=== PATIENT | male | born 1940 | race Caucasian/White ===

== ENCOUNTER 2016-10-04 18:43 | Emergency (ER) | payer OTHER, BC ==
[~2016-10-04] VITALS: Ht 177.8 cm; Wt 81.7 kg
[~2016-10-04 18:43] MED LIST: ACCUPRIL40 MG PO; ALPRAZOLAM 0.0.25 MG PO; ASPIRIN325 PO; CEFDINIR300 MG PO; CIPRO250 M1 PO; FLOMAX PO; LESCOL XL80 MG PO; NEXIUM40 MG PO; PROSCAR 5MG TABL5 M1 PO
[2016-10-04 21:01] VITALS: BP 109/71
[2016-10-04] MEDS ORDERED: ULTRAM 50MG TAB50 MG PO (21:28)
== END 2016-10-04 21:20 | disposition home or self-care (01) ==
LOC: ER 18:43
DX: R04.0 Epistaxis (principal); I10 Essential (primary) hypertension; K21.9 Gastro-esophageal reflux disease without esophagitis; Z95.5 Presence of coronary angioplasty implant and graft; Z96.652 Presence of left artificial knee joint; Z90.49 Acquired absence of other specified parts of digestive tract; Z88.6 Allergy status to analgesic agent

== ENCOUNTER 2019-02-19 11:44 | Emergency (ER) | payer OTHER, BC ==
[~2019-02-19] VITALS: Ht 175.3 cm; Wt 81.2 kg
[~2019-02-19 11:44] MED LIST changes: +ULTRAM 50MG TAB50 MG PO
[2019-02-19] MEDS ORDERED: OMEPRAZOLE40 MG PO (11:49)
[2019-02-19] MEDS ORDERED: CRESTOR20 MG PO (11:49)
[2019-02-19] MEDS ORDERED: AVAPRO 150 MG150 MG PO (11:49)
[2019-02-19] MEDS ORDERED: PROBIOTIC1 EAC1 PO (11:50)
[2019-02-19] MEDS ORDERED: MAGOX 400400 MG PO (11:51)
[2019-02-19] MEDS ORDERED: EYE DROP15 ML OPHTHALMIC (11:52)
[2019-02-19 12:10] LABS: HEMATOCRIT 38.1 % (42.0-52.0); HEMOGLOBIN 12.8 gm/dL (14.0-18.0); MCHC 33.6 g/dL (28.0-37.0); MCV 92.3 fL (80.0-100.0); RBC 4.13 mil/uL (4.50-6.00); WBC 4.1 thou/uL (4.0-11.0)
[2019-02-19 12:12] LABS: CALCIUM 10.9 mg/dL (8.5-10.1); CREATININE 1.8 mg/dL (0.7-1.3); POTASSIUM 4.1 mmol/L (3.5-5.1)
[2019-02-19] MEDS ORDERED: TRAMADOL 50 MG50 MG PO (13:56)
[2019-02-19 14:29] VITALS: BP 128/87
== END 2019-02-19 14:19 | disposition home or self-care (01) ==
LOC: ER 11:44
PROVIDERS: Physician Assistant
DX: S80.212A Abrasion, left knee, initial encounter (principal); S60.311A Abrasion of right thumb, initial encounter; M25.551 Pain in right hip; I10 Essential (primary) hypertension; K21.9 Gastro-esophageal reflux disease without esophagitis; Z95.5 Presence of coronary angioplasty implant and graft; Z96.652 Presence of left artificial knee joint; Z90.49 Acquired absence of other specified parts of digestive tract; Z88.6 Allergy status to analgesic agent; Z87.891 Personal history of nicotine dependence; W01.0XXA Fall on same level from slipping, tripping and stumbling without subsequent striking against object, initial encounter; Y93.01 Activity, walking, marching and hiking; Y92.89 Other specified places as the place of occurrence of the external cause; Y99.8 Other external cause status

== ENCOUNTER → 2019-04-06 | Outpatient (CLI) | payer OTHER, BC ==
[~2019-04-06] MED LIST changes: +ASPIR 8181 MG PO; -ASPIRIN325 PO; +AVAPRO 150 MG150 MG PO; +CRESTOR20 MG PO; +EYE DROP15 ML OPHTHALMIC; +MAGOX 400400 MG PO; +OMEPRAZOLE40 MG PO; +PROBIOTIC1 EAC1 PO; +TRAMADOL 50 MG50 MG PO
== END ==
LOC: RAD 09:34
DX: M48.54XA Collapsed vertebra, not elsewhere classified, thoracic region, initial encounter for fracture (principal); M47.817 Spondylosis without myelopathy or radiculopathy, lumbosacral region; M41.87 Other forms of scoliosis, lumbosacral region; W19.XXXA Unspecified fall, initial encounter; Y93.89 Activity, other specified; Y92.89 Other specified places as the place of occurrence of the external cause; Y99.8 Other external cause status

== ENCOUNTER → 2019-04-17 | Outpatient (CLI) | payer OTHER, BC ==
[~2019-04-17] VITALS: Ht 175.3 cm; Wt 86.6 kg
[2019-04-17 13:36] VITALS: BP 152/100
--- NOTE | 2019-04-17 13:46 | NUR ---
Pain Clinic Assessment: 1. History of Osteoarthritis: spine History of Rheumatoid Arthritis: Not Applicable 2. Height: 5 ft. 9 in. 175.3 cm. Weight: 191.0 lb. oz. 86.637 kg. Patient's BMI: 28.2 3. Vital Signs: BP: 152/100 Pulse: 99 Resp: 16 Temp: 02 Sat: ECG Mon: 4. Pain Intensity: 7 5. Fall Risk: Dizziness: N Needs help standing or walking: N Fallen in the last 3 months: Y Fall risk comments: 6. Patient on Blood Thinner: None 7. History of Hypertension: Y 8. Opioid Therapy greater than 6 weeks: N Opiate Contract Signed: 9. Risk Assessment Tool Provided: low-0 10. Functional Assessment Tool: 43/ 11. Recreational Drug Use: Never Drug Type: Tobacco Use: Former Smoker Tobacco Type: Amount or Packs/day: How Many Years: Alcohol Use: No Frequency: Quant:
--- NOTE | 2019-04-24 12:56 | HPC ---
[address] [place] [address] PAIN MANAGEMENT CONSULTATION Name: CHANELDIMPLE Room #: [id number] Admission: 04/17/19 Attend Phys: Jaciel Maharaj DO Discharge: Date of : 42 Report #: [id number] THIS REPORT FOR: //name// CC: Jaciel Beach DATE OF SERVICE: 04/17/2019 REFERRING NURSE PRACTITIONER: DAILY Mendez CHIEF COMPLAINT: Right low back pain. HISTORY OF PRESENT ILLNESS: As you know, the patient is a pleasant 78-year-old male who reports longstanding history of low back pain that has been present for years with an exacerbation of symptoms on 02/13/2019. The patient denies any specific injury or trauma that may have led to symptom occurrence. He is able to localize pain over the right lower back. He indicates he has trialed conservative treatment options including medications [id number] as well as rest, relaxation and some stretching exercises at home. He has not undergone any formalized physical therapy. It was noted that the patient had been seen in the Emergency Department where he was advised he had no concerning findings though x-ray imaging did show compression fracture at T11 on the superior endplate though the patient's symptoms did not appear to correlate to those findings. It was determined that this may be an old fracture though on x-ray imaging this cannot be determined. Due to lack of improvement with conservative treatment, the patient was subsequently referred to our clinic to discuss options for treatment of low back pain on the right side. The patient indicates pain is continuous, describes the pain as aching, places current pain score at 7/10, daily average at 8/10, worst pain has been at 10/10. The patient states that sitting or walking any distances or standing for long periods of time exacerbates symptoms. Movement tends to improve pain as does slight forward flexion of lumbar spine. He has been referred to our service to discuss treatment options for chronic back pain. PAST MEDICAL HISTORY: 1. Benign prostatic hypertrophy. 2. Coronary artery disease. 3. Hypercholesterolemia. 4. Hypertension. 5. Renal insufficiency. 6. Chronic back pain. PAST SURGICAL HISTORY: 1. Appendectomy. [address] [place] [address] PAIN MANAGEMENT CONSULTATION Name: DIMPLE BUCHANAN Room #: REG CL Humberto.#: [id number] Admission: 04/17/19 Attend Phys: Jaciel Maharaj DO Discharge: Date of : 42 Report #: [id number] 2. Cataract extraction. 3. Hemorrhoid surgery. 4. Laparoscopic cholecystectomy. 5. Prostate biopsy. 6. Total knee arthroplasty on the left. 7. Revision of total knee arthroplasty on the left. SOCIAL HISTORY: The patient denies tobacco, alcohol, IV or illicit drug use. He is retired, retired in 2011, not receiving workmen's compensation nor is he trying to obtain disability benefits. He is not in litigation in regards to pain accompanied by his daughter who is present in room today. REVIEW OF SYSTEMS: Positive for decrease in appetite, fever, night sweats, wearing corrective eyewear, hearing loss with tinnitus, chronic sinus problems with rhinitis, loss of appetite, frequent urination, nocturia, chronic low back pain. All other review of systems negative per 12-point review of systems other than those listed in history of present illness. Pain impact score 35/70 indicating moderate interference of daily activities secondary to pain. ALLERGIES: No known drug allergies. CURRENT MEDICATIONS: Aspirin 81 mg per day, lovastatin 20 mg once a day, irbesartan 150 mg once a day, lactobacillus 1 tab per day, magnesium oxide 400 mg per day, tetrahydrozoline 1 drop per day. IMAGING: X-ray of the lumbar spine obtained 04/06/2019 shows a mild age indeterminate superior endplate compression fracture at T11. Recommend MRI followup. There is multilevel lumbar spondylosis with severe disk desiccation at L3-4 through L5-S1, mild right convexity of the lumbar spine. There are no definitive imaging studies such as CT or MRI. PQRS: The patient has arthritic changes of the lumbar spine, bilateral knees, status post left total knee arthroplasty. He has no diagnosis of rheumatoid arthritis. He is placing pain intensity at 7/10. He is not a fall risk, but has had a fall in last 3 months, apparently, trip and fall injury on object. He does not use any type of assistive devices for ambulation. The patient is not on blood thinners. He is treated for hypertension. He is on chronic opioids, has a low opiate addiction potential. Pain impact score 35/70, moderate interference of daily activities secondary to pain. PHYSICAL EXAMINATION: VITAL SIGNS: Blood pressure 152/100, pulse is 99, respiratory rate 16 and unlabored. The patient is 97% on room air. Height 5 feet 9 inches tall, weight 191 pounds, BMI calculated 28.2. [address] [place] [address] PAIN MANAGEMENT CONSULTATION Name: DIMPLE BUCHANAN Room #: REG RENNY Schumacher#: [id number] Admission: 04/17/19 Attend Phys: Jaciel Maharaj DO Discharge: Date of : 42 Report #: [id number] GENERAL: Well-developed, well-nourished, well-hydrated 78-year-old male appearing stated age, pain is rated around 7/10. HEENT: Normocephalic, atraumatic. Pupils equal, round, reactive to light. Extraocular muscles are intact. Sclerae nonicteric without injection. NEUROLOGIC: Cranial nerves 2-12 grossly intact. Speech fluent. The patient deemed a good historian. LUNGS: Clear, no wheeze, rhonchi or rales. CARDIOVASCULAR: Regular. No appreciable gallop, no rub. ABDOMEN: Soft, nontender, nondistended. EXTREMITIES: Show no clubbing, no cyanosis, and no edema. MUSCULOSKELETAL: The patient has palpatory tenderness over the right paraspinal muscles of the lumbar spine. No spinous process tenderness. Lumbar provocation testing including extension, rotation, lateral flexion all intensify axial back pain directly over the right L4-5 and L5-S1 facet with most problematic area of the L5-S1 level. Seated straight leg raising negative. Supine straight leg raising negative. Jami's test is negative. Modified Gaenslen's test is positive for the axial low back pain on the right side, negative left. Gait is slightly antalgic favoring right lower extremity over left. Stance is slightly forward flexed lumbar spine with minimal loss of lordotic curvature. There is palpatory tenderness over the facet joint on the right, negative left at the L5-S1 level. Lumbar provocation testing including extension, rotation and lateral flexion to the right causes intensification of pain, negative left. ASSESSMENT: 1. Lumbosacral spondylosis without current radiculopathy. 2. Facet arthropathy of the lumbar spine. 3. Lumbar degeneration. 4. Chronic intractable pain. PLAN: 1. Based on today's physical exam and history the patient has provided, the description the patient uses in regards to pain, likely source of the patient's pain is the facet joints of the lumbar spine, specifically the L5-S1 on the right. The patient is able to localize pain directly over this area. We do have x-ray imaging, which shows arthritic changes throughout the lumbar region, which would correlate with the patient's current pain. He does not have any radicular component to his symptoms. There is no radiation of symptoms into the leg or down in a typical dermatomal fashion. The patient and I discussed treatment options for facet arthropathy pain, though addressing the very specific point of tenderness at the L5-S1 level on the right. Following was discussed with the patient today. We discussed today physical therapy, stretching exercise, core strengthening as a treatment option. We discussed medication management utilizing anti-inflammatory medication and potential topical agents to apply directly to the area. We discussed intra-articular facet injections as well as medial branch nerve blocks and radiofrequency lesioning to address this one specific area. We also discussed surgical options [address] [address] PAIN MANAGEMENT CONSULTATION Name: DIMPLE BUCHANAN Room #: REG CLSameer Schumacher#: [id number] Admission: 04/17/19 Attend Phys: Jaciel Maharaj DO Discharge: Date of : 42 Report #: [id number] with the patient. After reviewing risks and benefits of all proposed treatment options, the patient chose to move forward with an intraarticular facet injection. 2. The patient has been advised risks and benefits of an intra-articular facet injection to be provided under fluoroscopic guidance. These risks include but are not necessarily limited to bleeding, bruising, infection, worsening pain, no relief of pain, also risk of temporary or permanent muscle weakness, temporary or permanent nerve damage, possible paralysis, joint destruction and . The patient states understood and wished to proceed. 3. No medication changes made at today's visit. The patient will continue current medical therapy as previously prescribed. 4. We will see the patient back in followup visit in approximately 30 days. At that time, review the efficacy of today's intraarticular facet injection and determine if next in the series might be necessary or moving forward with medial branch blocks and possible radiofrequency lesioning if deemed necessary. 5. We wish to thank nurse practitioner, Nkechi Mcgregor for the opportunity to see this patient in consultation. We will keep you apprised of his response to treatment as we address the facet arthropathy pain noted on physical exam today and any other treatment options deemed necessary to treat his symptoms. Again, we wish to thank you for the opportunity to see this patient in consultation. PROCEDURE NOTE DESCRIPTION OF PROCEDURE: Right L5-S1 intraarticular facet injection under fluoroscopic guidance. This is the first procedure of the first series that the patient is undergoing. After obtaining written consent, the patient was taken back to the fluoroscopy suite and placed in a prone position with a pillow under the abdomen to decrease the lumbar lordosis and to facilitate needle entry into the facet joints. The skin overlying the lumbosacral area was prepped and draped in an aseptic fashion. AP and lateral fluoroscopic imaging was obtained. Optimal position of the fluoroscope occurred when the joint line was first visualized. The facet joints were identified radiographically directed adjacent to the superior articular process of the caudad vertebrae. The skin overlying the target site(s) of injection was anesthetized using 3 mL of 1% lidocaine. A 22 gauge 3.5 inch spinal needle with a bent tip was advanced towards the L5-S1 facet joint(s) on the right side under fluoroscopic guidance. The firm posterior capsule had its characteristic feel and the needle was advanced a few additional millimeters beyond the joint capsule into the joint space, but not into the articular cartilage. After the joint space was entered and aspiration was negative for heme or CSF, 0.2 mL of Omnipaque was injected demonstrating a characteristic facet arthrogram. After negative aspiration for heme or CSF, 1.5 mL of solution containing 1 mL, 40 mg per mL, 40 mg total triamcinolone along [address] [place] [address] PAIN MANAGEMENT CONSULTATION Name: DIMPLE BUCHANAN Room #: REG Sameer Schumacher#: [id number] Admission: 04/17/19 Attend Phys: Jaciel Maharaj DO Discharge: Date of : 42 Report #: [id number] with 0.5 mL of bupivacaine 0.5% was slowly injected at each of one facet(s). The needle(s) was then removed. There were no apparent complications. The patient tolerated the procedure well and was carefully escorted to the recovery room in stable condition. The VAS was 7 before the procedure and 0 minutes after the procedure. After meeting discharge criteria, the patient was discharged home. <ELECTRONICALLY SIGNED> By: Jaciel Maharaj DO 04/24/19 1256 [id number] [id number] Jaciel Maharaj DO /nt
== END | disposition home or self-care (01) ==
LOC: PAIN 07:00
DX: M54.5 Low back pain (principal); M47.817 Spondylosis without myelopathy or radiculopathy, lumbosacral region; M47.816 Spondylosis without myelopathy or radiculopathy, lumbar region; M51.36 Other intervertebral disc degeneration, lumbar region; G89.29 Other chronic pain; I10 Essential (primary) hypertension; E78.00 Pure hypercholesterolemia, unspecified; I25.10 Atherosclerotic heart disease of native coronary artery without angina pectoris; K21.9 Gastro-esophageal reflux disease without esophagitis; N40.0 Benign prostatic hyperplasia without lower urinary tract symptoms; N28.9 Disorder of kidney and ureter, unspecified; Z98.890 Other specified postprocedural states; Z79.899 Other long term (current) drug therapy; Z90.49 Acquired absence of other specified parts of digestive tract; Z98.49 Cataract extraction status, unspecified eye; Z79.82 Long term (current) use of aspirin; Z96.653 Presence of artificial knee joint, bilateral; Z88.8 Allergy status to other drugs, medicaments and biological substances

== ENCOUNTER → 2019-05-22 | Outpatient (CLI) | payer OTHER, BC ==
[~2019-05-22] VITALS: Ht 175.3 cm; Wt 81.7 kg
--- NOTE | ~2019-05-22 | HPC ---
[facility] [address] [place] [address] PAIN MANAGEMENT CONSULTATION Name: CHANELDIMPLE Room #: REG RENNY Humberto.#: [id number] Admission: 05/22/19 Attend Phys: Jaciel Maharaj DO Discharge: Date of : 42 Report #: [id number] THIS REPORT FOR: //name// CC: Jaciel Beach MD DATE OF SERVICE: 05/22/2019 CHIEF COMPLAINT: Right low back pain. HISTORY OF PRESENT ILLNESS: As you know, the patient is a very pleasant 78-year-old male who returns today in followup visit with continued right low back pain. He states the SI joint injection provided at last visit did not provide much in the way of benefit. He continues to point to an area at approximately the tip of the T12 rib that is the source of his current pain. Deep palpation over the area causes intensification of pain as does deep breathing and mobility. He returns today in followup visit having undergone new imaging studies requested by his PCP. 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 This unfortunately does not correlate with the patient's current symptoms. He returns to discuss options for treatment. Today, the patient is placing his pain at a 7-8/10. This is with the use of Advil. He denies injury or trauma to the area. ALLERGIES: NO KNOWN DRUG ALLERGIES. CURRENT MEDICATIONS: Aspirin, lovastatin, irbesartan, lactobacillus, and magnesium oxide. SOCIAL HISTORY: The patient denies tobacco, alcohol, IV or illicit drug use. He retired in 2011. He is accompanied by a family member present in room today. IMAGING: No new imaging available. PQRS: The patient has known arthritic changes of the lumbar spine, bilateral knees, status post left total knee arthroplasty. He does not have a diagnosis of rheumatoid arthritis. He is not a fall risk, has not had a fall in last 3 months. He is placing current pain score at 8/10 at its worse. He is not on blood thinners. He is treated for hypertension. He is not on chronic opioids, has a low opiate addiction potential and places pain impact score 43/70, moderate to severe interference of daily activities secondary to pain IMAGING: MRI lumbar spine obtained 05/03/2019 shows mild arthritic changes at [address] [address] PAIN MANAGEMENT CONSULTATION Name: DIMPLE BUCHANAN Room #: REG CLSameer Schumacher#: [id number] Admission: 05/22/19 Attend Phys: Jaciel Maharaj DO Discharge: Date of : 42 Report #: [id number] the L1-L2, L2-L3 level. There is a mild compression of thecal sac at the L1-L2 level and the L2-L3 level. At L3-L4, there is mild disk bulge, mild ligamentum flavum hypertrophy. No significant central canal neural foraminal stenosis. At L4-L5, there is a disk bulge, facet arthropathy only [id number] right and minimal left neural foraminal narrowing. L5-S1 endplate spurring minimal facet hypertrophy. No central canal neural foraminal compromise. PHYSICAL EXAMINATION: VITAL SIGNS: Blood pressure 125/91, pulse of 108, respiratory rate 16, and unlabored. The patient is 100% on room air. Height 5 feet 9 inches tall and weight 180.2 pounds, BMI calculated 26.6. GENERAL: Well-developed, well-nourished, well-hydrated 78-year-old male, appearing stated age, pain is rated today at 8/10. HEENT: Normocephalic, atraumatic. Pupils equal, round, reactive to light. Extraocular muscles are intact. EXTREMITIES: Show no clubbing, no cyanosis, and no edema. MUSCULOSKELETAL: The patient has tenderness to palpation directly over what appears to be the tip of the 12th rib on the right. There is no pain over the ileum nor is there a significant amount of sacroiliac pain generated today. The patient is able to localize the pain with a single finger directly over the tip of this 12th rib. He and I discussed the treatment options for this area and recommend a trigger point injection to address this pain directly. 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 There is a possibility that he is having some pseudoarticulation of the 12th rib upon the ileum, which is not unheard of in individuals have lost significant height due to disk changes and the patient indicates over 1-1/2 inch height loss over his lifetime. Difficult to determine if this is an articulation issue as I am unable to elicit that in physical examination. We discussed the trigger point injection today. He is amenable to undergo the procedure. We discussed the risks and benefits of a trigger point injection. These risks include, but are not necessarily limited to bleeding, bruising, infection, worsening of pain, no relief of pain, also risk of temporary or permanent muscle weakness, possible pneumothorax, and . The patient states he understood and wished to proceed. 1. No medication changes made at today's visit. The patient will keep us apprised of his effects with the trigger point injection and we will determine if repeating the injection would be warranted in the future. 2. The patient and I did discuss a return to see his PCP to discuss other options for treatment. We will continue to try to treat this issue, but further evaluation may be necessary. We will defer to the primary for that evaluation. PROCEDURE NOTE [address] [address] PAIN MANAGEMENT CONSULTATION Name: DIMPLE BUCHANAN Room #: REG CLSameer Schumacher#: [id number] Admission: 05/22/19 Attend Phys: Jaciel Maharaj DO Discharge: Date of : 42 Report #: [id number] DESCRIPTION OF PROCEDURE: Trigger point injection. After obtaining written consent, the patient was placed in a prone position. By palpating using a single finger, one trigger point was identified that reproduced the patient's typical radiating pain pattern. Trigger point was located over the tip of the 12th rib on the right. It appeared to be affecting the overlying musculature. The target site of injection was cleansed with aseptic technique using chlorhexidine. A 27-gauge 1-1/4-inch needle was then advanced towards the trigger points until the patient's typical pain was reproduced. After negative aspiration for heme, 5 mL of a solution containing 1 mL 40 mg per mL, 40 mg total triamcinolone along with 4 mL bupivacaine 0.5% was injected slowly. Needle was retracted approximately half way, flushed with 1 mL of lidocaine 1% and removed. Sterile bandage placed over injection site. There were no new motor deficits noted after the procedure. The patient was breathing well and no concerns of pneumothorax after the procedure. The patient tolerated procedure well, carefully escorted to recovery room in stable condition. No apparent complications. His VAS before procedure rated at 7-8/10, VAS 10 minutes after procedure 0/10. By: [id number] Jaciel Maharaj, /nt
[2019-05-22 08:47] VITALS: BP 125/91
--- NOTE | 2019-05-22 09:03 | NUR ---
Pain Clinic Assessment: 1. History of Osteoarthritis: spine History of Rheumatoid Arthritis: Not Applicable 2. Height: 5 ft. 9 in. 175.3 cm. Weight: 180.2 lb. oz. 81.738 kg. Patient's BMI: 26.6 3. Vital Signs: BP: 125/91 Pulse: 108 Resp: 16 Temp: 02 Sat: 100 ECG Mon: 4. Pain Intensity: 7-8 W/ADVIL 5. Fall Risk: Dizziness: N Needs help standing or walking: N Fallen in the last 3 months: N Fall risk comments: 6. Patient on Blood Thinner: None 7. History of Hypertension: Y 8. Opioid Therapy greater than 6 weeks: N Opiate Contract Signed: 9. Risk Assessment Tool Provided: low-0 10. Functional Assessment Tool: 43/70 11. Recreational Drug Use: Never Drug Type: Tobacco Use: Former Smoker Tobacco Type: Amount or Packs/day: How Many Years: Alcohol Use: No Frequency: Quant:
== END | disposition home or self-care (01) ==
LOC: PAIN 06:46
DX: M79.18 Myalgia, other site (principal); I10 Essential (primary) hypertension; Z79.82 Long term (current) use of aspirin; Z79.899 Other long term (current) drug therapy; Z96.652 Presence of left artificial knee joint; Z88.8 Allergy status to other drugs, medicaments and biological substances; Z87.891 Personal history of nicotine dependence

== ENCOUNTER 2019-07-25 09:06 | Emergency (ER) | payer OTHER, BC ==
[~2019-07-25] VITALS: Ht 175.3 cm; Wt 79.4 kg
[2019-07-25 10:51] LABS: ABSOLUTE NEUTROPHILS 3.4 thou/uL (1.4-8.2); BASOPHILS 2.1 % (0.0-2.0); EOSINOPHILS 1.9 % (0.0-3.0); HEMATOCRIT 38.6 % (42.0-52.0); HEMOGLOBIN 12.6 gm/dL (14.0-18.0); LYMPHOCYTES 17.5 % (24.0-44.0); MCH 30.4 pg (26.0-34.0); MCHC 32.7 g/dL (28.0-37.0); MCV 93.1 fL (80.0-100.0); MONOCYTES 5.1 % (1.0-8.0); PLATELET COUNT 137 thou/uL (150-400); POLYS 73.4 % (36.0-66.0); RBC 4.14 mil/uL (4.50-6.00); RDW 16.7 % (10.5-14.5); WBC 4.6 thou/uL (4.0-11.0)
[2019-07-25 11:03] LABS: ANION GAP 8 mmol/L (7-16); BUN 41 mg/dL (7-18); CALCIUM 11.1 mg/dL (8.5-10.1); CHLORIDE 103 mmol/L (98-107); CO2 28 mmol/L (21-32); CREATININE 2.6 mg/dL (0.7-1.3); GLUCOSE 111 mg/dL (74-106); POTASSIUM 5.1 mmol/L (3.5-5.1); SODIUM 139 mmol/L (136-145)
[2019-07-25] MEDS ORDERED: ADVIL200 M3 PO (11:03)
[2019-07-25] MEDS ORDERED: OMEPRAZOLE40 MG PO (11:03)
[2019-07-25 11:04] LABS: APTT 27.2 Seconds (24.5-32.8); PROTIME 10.2 Seconds (9.3-11.4)
[2019-07-25 11:13] LABS: ALBUMIN 3.8 g/dL (3.4-5.0); MAGNESIUM 2.1 mg/dL (1.8-2.4); SGOT 17 U/L (15-37); SGPT 29 U/L (30-65); TOTAL BILIRUBIN 0.6 mg/dL (<0.1-1.0); TOTAL PROTEIN 7.1 g/dL (6.4-8.2); TROPONIN-I <0.06 ng/mL (<0.06)
[2019-07-25 11:14] LABS: D-DIMER 0.21 ug/mLFEU (0.19-0.50)
[2019-07-25] MEDS ORDERED: PERCOCET PO (11:55)
[2019-07-25 13:05] VITALS: BP 143/72
--- NOTE | 2019-07-25 16:28 | EKG ---
[facility] [address] [address] ELECTROCARDIOGRAM REPORT Name: DIMPLE BUCHANAN Room #: DEP [facility]#: [id number] Admission: 07/25/19 Attend Phys: Discharge: 07/25/19 Date of : 42 Report #: [id number] THIS REPORT FOR: cc: Willy Beach MD, Rene P. MD Couchonnal, Luis F. MD ~ THIS REPORT FOR: //name// [facility] ED Test Date: 2019-07-25 Test Time: 10:51:04 Pat Name: DIMPLE BUCHANAN Department: Room: Gender: Documentation Specialist: : 1940 Requested By: Giovani Naranjo Order Number: [id number] MD: Capo Hernandez Measurements Intervals [place] Rate: 113 P: 44 AR: 171 QRS: 16 QRSD: 74 T: 10 QT: 305 QTc: 419 Interpretive Statements Sinus tachycardia Compared to ECG 07/10/2007 13:15:30 Sinus rhythm no longer present Electronically Signed On 07-25-2019 16:27:21 CDT by Capo Hernandez [email or web address] <ELECTRONICALLY SIGNED> By: Capo Hernandez MD 07/25/19 1627 1051 1051 Capo Hernandez MD /EPI
== END 2019-07-25 13:07 | disposition home or self-care (01) ==
LOC: ER 09:06
PROVIDERS: Emergency Medicine
DX: S32.010A Wedge compression fracture of first lumbar vertebra, initial encounter for closed fracture (principal); S32.020A Wedge compression fracture of second lumbar vertebra, initial encounter for closed fracture; S32.030A Wedge compression fracture of third lumbar vertebra, initial encounter for closed fracture; S22.080A Wedge compression fracture of T11-T12 vertebra, initial encounter for closed fracture; S22.070A Wedge compression fracture of T9-T10 vertebra, initial encounter for closed fracture; K21.9 Gastro-esophageal reflux disease without esophagitis; I10 Essential (primary) hypertension; I25.10 Atherosclerotic heart disease of native coronary artery without angina pectoris; F17.210 Nicotine dependence, cigarettes, uncomplicated; Z79.899 Other long term (current) drug therapy; Z79.82 Long term (current) use of aspirin; X58.XXXA Exposure to other specified factors, initial encounter; Y93.89 Activity, other specified; Y92.89 Other specified places as the place of occurrence of the external cause; Y99.8 Other external cause status

== ENCOUNTER → 2019-08-15 | Outpatient (CLI) | payer OTHER, BC ==
[~2019-08-15] VITALS: Ht 175.3 cm; Wt 77.1 kg
[~2019-08-15] MED LIST changes: +ADVIL200 M3 PO; +ALPRAZOLAM 0.50.5 M1 PO; +DURAGESIC1 EAC4 TRANSDERM; +LACTULOSE10 GM/154 PO; +MOVANTIK25 MG PO; +PERCOCET 5-3251 EACH PO; +PERCOCET PO
--- NOTE | ~2019-08-15 | HPC ---
[facility] [address] [place] [address] PAIN MANAGEMENT CONSULTATION Name: DIMPLE BUCHANAN Room #: REG RENNY ZambranoFahadMichelle.#: [id number] Admission: 08/15/19 Attend Phys: Jaciel Maharaj DO Discharge: Date of : 42 Report #: [id number] THIS REPORT FOR: cc: Willy Beach MD, Rene P. MD Johnson, James E. DO ~ CC: Jaciel Beach MD DATE OF SERVICE: 08/15/2019 CHIEF COMPLAINT: Back pain. HISTORY OF PRESENT ILLNESS: As you know, the patient is a pleasant 78-year-old male who has been suffering from back symptoms for an extended period of time. He was recently image, which showed new T8, T9 and possibly T10 fractures. He had been utilizing opioid medications being provided by his primary care physician, Dr. Willy Beach without benefit. They attempted escalation of his medication and again no significant pain improvement. The patient was referred to our clinic then to discuss treatment options. He presents today with an LSO brace, which is providing some stabilization of the lumbar spine, but is providing no stabilization of the thoracic area where the fractures are noted. The LSO brace is a classic type of Velcro stabilized brace causing significant compression on the abdomen and lower lung areas. The patient has been having more increasing coughing with shortness of breath. He is also describing 4-5 days of constipation, which is exacerbated by this bracing system. The patient has been referred to our clinic to discuss options for treatment to address this T8, T9 and T10 fractures. ALLERGIES: No known drug allergies. CURRENT MEDICATIONS: Alprazolam 0.5 mg t.i.d., oxycodone 5/325 one tab p.o. q.4 hours p.r.n. for pain, ibuprofen 400 mg 3 times daily, omeprazole 40 mg per day, magnesium oxide 400 mg once a day, lactobacillus 1 tab per day, irbesartan 150 mg once a day, rosuvastatin 20 mg per day, aspirin 81 mg per day. SOCIAL HISTORY: The patient reports he is a former smoker, smoked for about 20 years. Denies IV or illicit drug use. Denies any chronic alcohol use. He retired in 2011. He is accompanied by his family member present in room today. IMAGING: Shows from the MRI of 08/01/2019 acute compression fracture involving the superior endplate of T8. There is new edema noted at the T9, T10 end plates. End plates compression fractures are suspected. T11 shows compression fracture involving the superior endplate, which appears chronic and stable. There is further collapse of T12 compression fracture noted compared to the [address] [address] PAIN MANAGEMENT CONSULTATION Name: DIMPLE BUCHANAN Room #: REG CLI Winsome#: [id number] Admission: 08/15/19 Attend Phys: Jaciel Maharaj DO Discharge: Date of : 42 Report #: [id number] April study though there is no edema in the area, which would indicate chronic findings. There is no resultant high-grade central canal neural foraminal stenosis. 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 He also reports arthritic changes of the hips and knees. No rheumatoid arthritis. He is placing current pain score 10/10. He is a fall risk, but has not had a fall in last 3 months. He is not on blood thinners, but is treated for hypertension. He is on opioids, but not in a chronic nature. He has a low opioid addiction potential. Pain impact score 43/70, severe interference of daily activities secondary to pain. PHYSICAL EXAMINATION: VITAL SIGNS: Blood pressure 113/85, pulse is 112, respiratory rate 18 and unlabored. The patient is 96% on room air. Height 5 feet 9 inches tall, weight 170 pounds, BMI calculated 25.1. GENERAL: Well-developed, well-nourished, well-hydrated 78-year-old male. He is in moderate distress secondary to pain, placing current pain score 10/10. HEENT: Normocephalic, atraumatic. Pupils equal, round, and reactive to light. NEUROLOGIC: Speech is fluent. The patient deemed a fair historian. LUNGS: Decreased breath sounds bilaterally in the bases, left greater than the right. It does appear to have some wheezing and possibly even light rales in the lower lung naranjo. The patient is unable to take full breaths due to pain. Tidal volume seen reduced. CARDIOVASCULAR: Regular. No appreciable gallop, no rub. ABDOMEN: Soft, obese. Bowel sounds are hypoactive at best. EXTREMITIES: Show no clubbing, no cyanosis, no edema. MUSCULOSKELETAL: Palpatory tenderness is noted over the lower thoracic area, consistent with the T8, T9, T10 levels. There are no changes in skin color or texture over the thoracic area. There appears to be normal tactile sensation from T1 to T12. ASSESSMENT: 1. Acute compression fractures of the thoracic spine. 2. Opioid-induced constipation. 3. Intractable pain. PLAN: 1. Based on today's physical exam and history the patient has provided, the description the patient uses in regard to pain, the activities that exacerbate and improve pain, the likely source of the symptoms is the compression fractures of the thoracic spine. Imaging of the thoracic spine dated 07/24/2019 confirms T8 compression fracture and possible T9 and T10 fractures. There has been worsening of the T12 fracture, though this appears chronic, as there is no edema in the imaging. We have discussed with the patient the treatment options for thoracic compression fractures. The following was discussed with the patient [facility] [address] [place] [address] PAIN MANAGEMENT CONSULTATION Name: DIMPLE BUCHANAN Room #: [facility] Center[facility]ahad[facility]ahad#: [id number] Admission: 08/15/19 Attend Phys: Jaciel Maharaj DO Discharge: Date of : 42 Report #: [id number] today. We discussed treatment could include physical therapy, stretching exercises and core strengthening techniques. Though, this is typically done as healing progresses. We discussed bracing of the thoracic and lumbar area with a Carlisle brace. Currently, he is in a LSO brace that utilizes a Velcro fastener and compressive type forces which he provides no significant stabilization of the thoracic spine and is likely contributing to his concern of constipation and his decreased in respiratory effort due to the compressive forces of the brace as part of its securing mechanism. We also discussed vertebral augmentation procedures to address the T8, T9 and T10 fractures with either vertebroplasty or kyphoplasty. After reviewing the risks and benefits of all proposed treatment options, the patient chose to begin with the TLSO bracing system and medication changes. 2. We have written for the patient to be fitted and provided a Carlisle bracing system. We have given the patient a prescription to undergo the fitting of the device as quickly as possible, so that he can utilize this device in a seated and standing position. He can remove it for sleep. The patient was given this prescription to get the bracing system completed as quickly as possible. We have recommended that the patient utilize his LSO brace that he currently has until which time he can then graduate to the more appropriate Radha bracing system. 3. The patient has been taking ever increasing doses of oxycodone without pain improvement. I do believe he is going to need a baseline medication initially for pain control, which can be weaned off rapidly once his symptoms began to improve. We would recommend a fentanyl patch. Given the level of oxycodone he is taking currently, which is near 30-40 mg of oxycodone today, I believe a fentanyl 25 mcg patch will be appropriate. This will place him at a higher level of morphine equivalents per day, which is required based on his report of 10/10 pain despite this 40 mg of oxycodone given on a daily basis. We have written for the 25 mcg patch to be initiated immediately. I have written for #10 with no refills. The patient was advised to watch for side effects of sleepiness, disorientation, confusion, mental slowing and progressively worsening constipation with its use. This should reduce to some degree the effects of opioids on the GI tract as the route of entry into the system is transdermal and not through the GI system. This is an optimal medication for the patient with constipation. 4. In regard to the patient's constipation, I believe it is multifactorial, but significantly complicated by the use of his opioids. We recommend Movantik 25 mg dose 1 tab p.o. q.a.m. for maintenance of opioid-induced constipation. The patient was given a prescription of #30 tablets to start immediately. It is the most appropriate a single agent for opioid-induced constipation and is indicated in this patient's case. We have advised the patient prior to utilization of the Movantik, he can trial lactulose a prescription was sent for the patient, though lactulose does not directly affect the opioid-induced constipation, but does help with typical constipation issues, he could certainly try lactulose, though Movantik is much more appropriate treatment course. 5. We have taken the liberty of contacting our Interventional Radiology [address] [place] [address] PAIN MANAGEMENT CONSULTATION Name: DIMPLE BUCHANAN Room #: REG [facility]..#: [id number] Admission: 08/15/19 Attend Phys: Jaciel Maharaj DO Discharge: Date of : 42 Report #: [id number] Department to see if at this point during the COVID restrictions, they are performing kyphoplasty procedures. I am pleased to indicate to the patient that they are continuing to utilize the kyphoplasty on an urgent basis. I do feel in this patient's case given the 3 different fractures that this would be classified as an urgent case. We have referred the patient to Interventional Radiology. I am hopeful he can undergo the procedures rapidly and gain improvement and stabilization of the fractures at the level that they are without progression. I will be available to discuss his case with these physicians if they wish to discuss further. 6. We will see the patient back in followup visit in approximately 2 weeks. We have requested that he return for medication adjustments if necessary. We are hopeful that he will be able to undergo augmentation procedures at the T8, T9 and T10 levels, but if he has not been able to do so at that time, we can at least adjust medications and confirm he is wearing his TLSO bracing in the form of a Radha brace appropriately. 7. We wish to thank Dr. Beach for the re-referral of the patient to our clinic for this acute problem. Again, we wish to thank Dr. Beach for this referral. By: [id number] Jaciel Maharaj DO /nt
[2019-08-15 12:36] VITALS: BP 113/85
--- NOTE | 2019-08-15 12:48 | NUR ---
Pain Clinic Assessment: 1. History of Osteoarthritis: BACK History of Rheumatoid Arthritis: Not Applicable 2. Height: 5 ft. 9 in. 175.3 cm. Weight: 170.0 lb. oz. 77.112 kg. Patient's BMI: 25.1 3. Vital Signs: BP: 113/85 Pulse: 112 Resp: 18 Temp: 02 Sat: 96 ECG Mon: 4. Pain Intensity: 10 5. Fall Risk: Dizziness: N Needs help standing or walking: N Fallen in the last 3 months: N Fall risk comments: 6. Patient on Blood Thinner: None 7. History of Hypertension: Y 8. Opioid Therapy greater than 6 weeks: N Opiate Contract Signed: 9. Risk Assessment Tool Provided: low-0 10. Functional Assessment Tool: 43/ 11. Recreational Drug Use: Never Drug Type: Tobacco Use: Former Smoker Tobacco Type: Cigarettes Amount or Packs/day: How Many Years: 20 Alcohol Use: No Frequency: Quant:
== END | disposition home or self-care (01) ==
LOC: PAIN 06:52
DX: M54.9 Dorsalgia, unspecified (principal); M48.54XA Collapsed vertebra, not elsewhere classified, thoracic region, initial encounter for fracture; N18.9 Chronic kidney disease, unspecified; Z79.899 Other long term (current) drug therapy; Z79.891 Long term (current) use of opiate analgesic; Z87.891 Personal history of nicotine dependence; Z88.2 Allergy status to sulfonamides

== ENCOUNTER → 2019-08-16 | Outpatient (CLI) | payer OTHER, BC ==
[~2019-08-16] VITALS: Ht 172.7 cm; Wt 77.1 kg
[~2019-08-16] MED LIST changes: +DURAGESIC1 EACH TRANSDERM
[2019-08-16 13:28] VITALS: BP 149/106
== END | disposition home or self-care (01) ==
LOC: CATH 12:42
DX: M54.9 Dorsalgia, unspecified (principal); M80.08XA Age-related osteoporosis with current pathological fracture, vertebra(e), initial encounter for fracture; I10 Essential (primary) hypertension; I25.10 Atherosclerotic heart disease of native coronary artery without angina pectoris; N40.0 Benign prostatic hyperplasia without lower urinary tract symptoms; K21.9 Gastro-esophageal reflux disease without esophagitis; Z98.890 Other specified postprocedural states; Z79.899 Other long term (current) drug therapy; Z90.49 Acquired absence of other specified parts of digestive tract; Z96.653 Presence of artificial knee joint, bilateral; Z82.49 Family history of ischemic heart disease and other diseases of the circulatory system

== ENCOUNTER → 2019-09-05 | Outpatient (CLI) | payer OTHER, BC ==
[~2019-09-05] MED LIST changes: +ELIQUIS5 M1 PO; +SERTRALINE HCL100 MG PO
== END ==
LOC: SJCVCIMAG 07:35
DX: S22.060A Wedge compression fracture of T7-T8 vertebra, initial encounter for closed fracture (principal); I25.10 Atherosclerotic heart disease of native coronary artery without angina pectoris; E78.00 Pure hypercholesterolemia, unspecified; R07.9 Chest pain, unspecified; I12.9 Hypertensive chronic kidney disease with stage 1 through stage 4 chronic kidney disease, or unspecified chronic kidney disease; N18.3 Chronic kidney disease, stage 3 (moderate); D68.59 Other primary thrombophilia; C90.00 Multiple myeloma not having achieved remission; R53.83 Other fatigue; R06.02 Shortness of breath; E78.5 Hyperlipidemia, unspecified; Z87.891 Personal history of nicotine dependence; X58.XXXA Exposure to other specified factors, initial encounter; Y93.89 Activity, other specified; Y92.89 Other specified places as the place of occurrence of the external cause; Y99.8 Other external cause status

== ENCOUNTER → 2019-09-07 | Outpatient (CLI) | payer OTHER, BC ==
[~2019-09-07] VITALS: Ht 172.7 cm; Wt 69.5 kg
[2019-09-07 09:04] VITALS: BP 115/77
--- NOTE | 2019-09-07 09:26 | NUR ---
PORTABLE CHEST XRAY HERE
[2019-09-07 09:50] LABS: CALCIUM 7.7 mg/dL (8.5-10.1)
--- NOTE | 2019-09-07 16:28 | CATHLAB ---
[facility] [place] [address] INVASIVE PROCEDURE REPORT Name: DIMPLE BUCHANAN Room #: REG RENNY ZambranoFahadMichelleFahad#: [id number] Admission: 09/07/19 Attend Phys: Fam Pantoja MD, Discharge: Date of : 42 Report #: [id number] THIS REPORT FOR: cc: Willy Beach MD, Rene P. MD Mancuso, Gerald M. MD [facility] ~ APPROVED REPORT Study performed: 09/07/2019 10:54:14 Patient Details Patient Status: Out-Patient Room #: The patient is a 78 year-old male Event Personnel Fam Pantoja Psychiatric Therapist, Corey Lui Radiologist, Sussy Shore RN RN, Dot Duncan RTR, MC Palomares, Karina Mclaughlin Monitor Procedures Performed Art Access - R femoral artery* Hemostasis w/ Mynx Left Heart Cath w/or w/o Coronaries [id number] [facility] Indication Chest pain Procedure Narrative A SHEATH BRITE-TIP 6F X 11CM ([id number]) sheath was inserted into the RFA 6F^. Coronary angiography was performed using coronary diagnostic catheters. The right coronary system was accessed and visualized with a JR4 catheter. The left coronary system was accessed and visualized with a JL4 catheter. The left ventricle was accessed and visualized with a STR PIG catheter. Left ventriculogram was performed in 30 degree projection. The patient tolerated the procedure well and there were no complications associated with the procedure. There was no hematoma. Intraoperative Conscious Sedation Sedation start time: 1113 Case end Time: 1200 Fentanyl 50 mcg Fluoro Time: 4.43 minutes Dose: DAP 8728.40 cGycm2 283 mGy Contrast Type and Amount: Visipaque 67 ml [facility] [address] [place] [address] INVASIVE PROCEDURE REPORT Name: DIMPLE BUCHANAN Room #: [facility]#: [id number] Admission: 09/07/19 Attend Phys: Fam Pantoja, Discharge: Date of : 42 Report #: [id number] Hemodynamics The aortic pressure is 125/60 mmHg with a mean of 79 mmHg. The left ventricular pressure is 136/3 mmHg with a mean of mmHg. The left ventricular end diastolic pressure is 17 mmHg. Conclusion #1. Normal left ventricular size and hyperdynamic systolic function EF 65% #2 heavily calcified left main with a 30% ostial lesion giving rise to LAD and circumflex #3 LAD with proximal calcification with mild irregularities diffuse distal disease mid distal vessel of 70% no indication for intervention. 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 No indication for intervention. The distal PDA may be occluded. Recommendations and plan: Continue aggressive risk factor modification. Patient will resume his multiple myeloma chemotherapy chest pain would appear to be noncardiac. Follow discharge protocol. <ELECTRONICALLY SIGNED> By: Fam Pantoja MD, FACC 09/07/19 1626 [id number] Fam Pantoja MD, FACC /INF
--- NOTE | 2019-09-08 11:53 | EKG ---
[facility] [address] [place] [address] ELECTROCARDIOGRAM REPORT Name: CHANELDIMPLE Room #: REG [facility].#: [id number] Admission: 09/07/19 Attend Phys: Fam Pantoja MD, Discharge: Date of : 42 Report #: [id number] THIS REPORT FOR: cc: Willy Beach MD, Rene P. MD Couchonnal, Luis F. MD ~ THIS REPORT FOR: //name// [facility] Test Date: 2019-09-07 Test Time: 09:42:59 Pat Name: DIMPLE BUCHANAN Department: Room: Gender: Roving Hauler: [facility] : 1940 Requested By: Fam Pantoja Order Number: [id number] MD: Capo Hernandez Measurements Intervals [place] Rate: 98 P: 24 GA: 185 QRS: 18 QRSD: 90 T: 43 QT: 343 QTc: 438 Interpretive Statements Sinus rhythm Compared to ECG 07/25/2019 10:51:04 Sinus tachycardia no longer present Electronically Signed On 09-08-2019 11:51:43 CDT by Capo Hernandez [email or web address] <ELECTRONICALLY SIGNED> By: Capo Hernandez MD 09/08/19 1151 0942 0942 Capo Hernandez MD /EPI
== END | disposition home or self-care (01) ==
LOC: CATH 08:14
PROVIDERS: Internal Medicine Cardiovascular Disease
DX: R07.9 Chest pain, unspecified (principal); I25.10 Atherosclerotic heart disease of native coronary artery without angina pectoris; T82.855A Stenosis of coronary artery stent, initial encounter; I70.1 Atherosclerosis of renal artery; I73.9 Peripheral vascular disease, unspecified; I12.9 Hypertensive chronic kidney disease with stage 1 through stage 4 chronic kidney disease, or unspecified chronic kidney disease; N18.9 Chronic kidney disease, unspecified; N40.0 Benign prostatic hyperplasia without lower urinary tract symptoms; E78.00 Pure hypercholesterolemia, unspecified; Z90.49 Acquired absence of other specified parts of digestive tract; K21.9 Gastro-esophageal reflux disease without esophagitis; Z98.890 Other specified postprocedural states; Z79.899 Other long term (current) drug therapy; Z96.653 Presence of artificial knee joint, bilateral; Z85.79 Personal history of other malignant neoplasms of lymphoid, hematopoietic and related tissues

== ENCOUNTER → 2020-09-05 | Outpatient (CLI) | payer OTHER, BC | LOC: SJCVC 14:20 | PROVIDERS: ATTEND Internal Medicine Cardiovascular Disease | DX: I25.10 Atherosclerotic heart disease of native coronary artery without angina pectoris (principal); E78.00 Pure hypercholesterolemia, unspecified; D68.59 Other primary thrombophilia; N18.30 Chronic kidney disease, stage 3 unspecified; I65.23 Occlusion and stenosis of bilateral carotid arteries; C90.00 Multiple myeloma not having achieved remission; I12.9 Hypertensive chronic kidney disease with stage 1 through stage 4 chronic kidney disease, or unspecified chronic kidney disease; Z87.891 Personal history of nicotine dependence; Z72.89 Other problems related to lifestyle; Z79.891 Long term (current) use of opiate analgesic; Z79.899 Other long term (current) drug therapy; Z88.2 Allergy status to sulfonamides; Z88.5 Allergy status to narcotic agent; Z95.828 Presence of other vascular implants and grafts ==

== ENCOUNTER → 2021-03-02 | Outpatient (CLI) | payer OTHER, BC | LOC: SJCVC 14:02 | PROVIDERS: ATTEND Internal Medicine Cardiovascular Disease | DX: R94.31 Abnormal electrocardiogram [ECG] [EKG] (principal); I25.10 Atherosclerotic heart disease of native coronary artery without angina pectoris; I12.9 Hypertensive chronic kidney disease with stage 1 through stage 4 chronic kidney disease, or unspecified chronic kidney disease; E11.22 Type 2 diabetes mellitus with diabetic chronic kidney disease; N18.30 Chronic kidney disease, stage 3 unspecified; C90.00 Multiple myeloma not having achieved remission; I65.23 Occlusion and stenosis of bilateral carotid arteries; D68.59 Other primary thrombophilia; N40.0 Benign prostatic hyperplasia without lower urinary tract symptoms; E78.00 Pure hypercholesterolemia, unspecified; Z90.49 Acquired absence of other specified parts of digestive tract; Z98.890 Other specified postprocedural states; Z88.2 Allergy status to sulfonamides; Z88.1 Allergy status to other antibiotic agents; Z88.8 Allergy status to other drugs, medicaments and biological substances; Z79.899 Other long term (current) drug therapy ==